=== PATIENT | female | born 1990 | race Caucasian/White ===

== ENCOUNTER 2019-12-07 18:05 | Inpatient (IN) | payer OTHER ==
[2019-12-07] MEDS ORDERED: Sodium Chloride 0.9% 10 ML Syringe FLUSH PRN (18:59)
[2019-12-07] MEDS ORDERED: Ondansetron 4 MG/2 ML SDV IVPUSH PRN ×2 (18:59→21:27)
[2019-12-07] MEDS ORDERED: Citric Acid/Sodium Citrate Solution 30 ML Cup PO ONE (18:59)
[2019-12-07] MEDS ORDERED: Metoclopramide 10 MG/2 ML SDV IVPUSH ONE (18:59)
[2019-12-07] MEDS ORDERED: ceFAZolin 2 GM in Premix Bag 1 BAG IV ONE (19:00)
[2019-12-07] MEDS ORDERED: ceFAZolin 1 GM in Premix Bag 1 BAG IV ONE (19:00)
[2019-12-07] MEDS ORDERED: Lactated Ringers 1,000 ML IV SCH (19:00)
--- NOTE | 2019-12-07 19:27 | PCM.LDHP ---
L&D History of Present Illness - General Date of Service: 12/07/19 Admit Problem/Dx: Patient Status Order with Admit Dx/Problem 12/07/19 18:59 Patient Status [ADT] Routine Admission Diagnosis/Problem Admission Diagnosis/Problem Abnormal test Source of Information: Patient History Limitations: Reports: No Limitations - History of Present Illness Introduction:: Patient is a 29 y/o at 37 6/7 wks who presents for concerns of decreased FM. Patient seen for clinic appointment today and noted concerns for decreased movement. NST done and non reactive. Follow up BPP done and was only 6/10 and also with findings of polyhydramnios. Total score of 6/10. Given this finding recommendation was to proceed to L&D for delivery. This was at 1300. Patient very nervous with this recommendation and declined. See clinic note for full details. However, went home and continued to have concerns for decreased FM. Called into clinic and was asked to present to L&D. She did present at 1820. 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 (Approximate): - Infectious Disease History Infectious Disease History: Reports: Herpes - Past Surgical History Female Surgical History: Reports: Section (x3) Social & Family History - Tobacco Use Smoking Status *Q: Former Smoker - Alcohol Use Alcohol Use History: No - Recreational Drug Use Recreational Drug Use: No H&P Review of Systems - Review of Systems: Review Of Systems: See Below General: Reports: No Symptoms Pulmonary: Reports: No Symptoms Cardiovascular: Reports: No Symptoms Gastrointestinal: Reports: No Symptoms Genitourinary: Reports: No Symptoms Musculoskeletal: Reports: No Symptoms Psychiatric: Reports: No Symptoms Neurological: Reports: No Symptoms L&D Exam - Exam Exam: See Below - Vital Signs Weight: 119.748 kg - OB Specific Contraction Intensity: Irritability Movement: Active Heart Tones: Present Heart Tones per Min: 130 Heart Rate (FHR) Variability: Moderate (6-25 bmp) - Exam General: Alert, Oriented, Cooperative Lungs: Clear to Auscultation, Normal Respiratory Effort Cardiovascular: Regular Rate, Regular Rhythm GI/Abdominal Exam: Soft, Non-Tender Genitourinary: Normal external exam Extremities: Normal Inspection Skin: Warm, Dry, Intact - Problem List (1) BMI 45.0-49.9, adult SNOMED Code(s): 535166256, 030195876 ICD Code: Z68.42 - BODY MASS INDEX (BMI) 45.0-49.9, ADULT Status: Acute Current Visit: Yes (2) History of delivery SNOMED Code(s): 074598553 ICD Code: Z98.891 - HISTORY OF UTERINE SCAR FROM PREVIOUS SURGERY Status: Acute Current Visit: Yes (3) 37 weeks gestation of SNOMED Code(s): 13439379 ICD Code: Z3A.37 - 37 WEEKS GESTATION OF Status: Acute Current Visit: Yes (4) Abnormal test SNOMED Code(s): 664036043, 532701855 ICD Code: O28.9 - UNSP ABNORMAL FINDINGS ON SCREENING OF MOTHER Status: Acute Current Visit: Yes Problem List Initiated/Reviewed/Updated: Yes Orders Last 24hrs: Active Orders 24 hr Category Date Time Status Patient Status [ADT] Routine ADT 12/07/19 18:59 Active Communication Order [RC] ROUTINE Care 12/07/19 18:59 Active Heart Tones [RC] PER UNIT ROUTINE Care 12/07/19 18:59 Active Non Stress Test [RC] PER UNIT ROUTINE Care 12/07/19 18:59 Active Peripheral IV Care [RC] . DIRECTED Care 12/07/19 19:02 Active Procedure Site Prep Instruct [RC] ASDIRECTED Care 12/07/19 18:59 Active Verify Patient Consent Obtain [RC] PER UNIT ROUTINE Care 12/07/19 18:59 Active Vital Signs [RC] PFP Care 12/07/19 18:59 Active CBC W/O DIFF,HEMOGRAM [HEME] Stat Lab 12/07/19 18:59 Ordered RAPID PLASMA REAGIN,RPR [CHEM] Routine Lab 12/07/19 18:59 Ordered TYPE AND SCREEN [BBK] Routine Lab 12/07/19 18:59 Ordered Citric Acid/Sodium Citrate [Bicitra Solution] Med 12/07/19 18:59 Pending 30 ml PO ONETIME ONE Lactated Ringers [Ringers, Lactated] 1,000 ml Med 12/07/19 19:00 Pending IV ASDIRECTED Metoclopramide [Reglan] Med 12/07/19 18:59 Pending 10 mg IVPUSH ONETIME ONE Ondansetron [Zofran] Med 12/07/19 18:59 Pending 4 mg IVPUSH Q4H PRN Sodium Chloride 0.9% [Saline Flush] Med 12/07/19 18:59 Pending 10 ml FLUSH ASDIRECTED PRN ceFAZolin [Ancef] 1 gm Med 12/07/19 18:59 Pending Premix Bag 1 bag IV ONETIME ceFAZolin [Ancef] 2 gm Med 12/07/19 18:59 Pending Premix Bag 1 bag IV ONETIME Peripheral IV Insertion Adult [OM.PC] Routine Oth 12/07/19 18:59 Ordered Schedule Procedure [COMM] Per Unit Routine Oth 12/07/19 18:59 Ordered Resuscitation Status Routine Resus Stat 12/07/19 18:59 Ordered Medication Orders Citric Acid/Sodium Citrate (Bicitra Solution) 30 ml PO ONETIME ONE Stop: 12/07/19 19:00 Cefazolin Sodium/Dextrose 2 gm (/ Premix) 50 mls @ 100 mls/hr IV ONETIME ONE Stop: 12/07/19 19:28 Cefazolin Sodium/Dextrose 1 gm (/ Premix) 50 mls @ 100 mls/hr IV ONETIME ONE Stop: 12/07/19 19:28 Lactated Ringer's (Ringers, Lactated) 1,000 mls @ 125 mls/hr IV ASDIRECTED [facility] Metoclopramide HCl (Reglan) 10 mg IVPUSH ONETIME ONE Stop: 12/07/19 19:00 Ondansetron HCl (Zofran) 4 mg IVPUSH Q4H PRN PRN Reason: Nausea/Vomiting Sodium Chloride (Saline Flush) 10 ml FLUSH ASDIRECTED PRN PRN Reason: Keep Vein Open Assessment/Plan Comment:: Reviewed with patient that while FHR tracing is more appropriate currently it does not overrule testing from earlier today especially as she still has concerns for decreased FM. Recommendations are still to proceed with c- section. After patient and her were allowed to review they do agree with this plan. Labs ordered. Ofelia ASHLEY. Peds/Anesthesia made aware. Consent reviewed and signed earlier today in clinic.
--- NOTE | 2019-12-07 20:19 | PCM.PREANE ---
Preanesthetic Assessment - Anesthesia/Transfusion/Family Hx Anesthesia History: Prior Anesthesia Without Reaction - Review of Systems General: No Symptoms Pulmonary: No Symptoms Cardiovascular: No Symptoms Gastrointestinal: No Symptoms Neurological: No Symptoms Other: Reports: None - Physical Assessment NPO Status Date: 12/07/19 NPO Status Time: 16:00 Vital Signs: Last Vital Signs Temp 98.1 F 12/07/19 18:24 Pulse 87 12/07/19 18:24 Resp 16 12/07/19 18:24 BP 112/58 L 12/07/19 18:24 Pulse Ox 95 12/07/19 18:24 Height: 1.57 m Weight: 119.748 kg ASA Class: 2E Mental Status: Alert & Oriented x3 Airway Class: Mallampati = 2 Dentition: Reports: Normal Dentition Thyro-Mental Finger Breadths: 3 Mouth Opening Finger Breadths: 3 ROM/Head Extension: Full Lungs: Clear to Auscultation, Normal Respiratory Effort Cardiovascular: Regular Rate, Regular Rhythm - Lab Values: Laboratory Last Values WBC 10.73 K/mm3 (3.98-10.04) H 12/07/19 19:37 RBC 3.95 M/mm3 (3.98-5.22) L 12/07/19 19:37 Hgb 11.2 gm/dl (11.2-15.7) 12/07/19 19:37 Hct 35.2 % (34.1-44.9) 12/07/19 19:37 MCV 89.1 fl (79.4-94.8) 12/07/19 19:37 MCH 28.4 pg (25.6-32.2) 12/07/19 19:37 MCHC 31.8 g/dl (32.2-35.5) L 12/07/19 19:37 RDW Std Deviation 44.5 fL (36.4-46.3) 12/07/19 19:37 Plt Count 257 K/mm3 (182-369) 12/07/19 19:37 MPV 10.6 fl (9.4-12.3) 12/07/19 19:37 - Allergies Allergies/Adverse Reactions: Allergies Allergy/AdvReac Type Severity Reaction Status Date / Time No Known Allergies Allergy Verified 12/07/19 19:32 - Acknowledgements Anesthesia Type Planned: General Anesthesia, Spinal Pt an Appropriate Candidate for the Planned Anesthesia: Yes Alternatives and Risks of Anesthesia Discussed w Pt/Guardian: Yes Pt/Guardian Understands and Agrees with Anesthesia Plan: Yes 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: - Infectious Disease History Infectious Disease History: Reports: Herpes - Past Surgical History Female Surgical History: Reports: Section (x3) - SUBSTANCE USE Smoking Status *Q: Former Smoker Recreational Drug Use History: No - CURRENT (IN HOUSE) MEDS Current Meds: Current Medications Lactated Ringer's (Ringers, Lactated) 1,000 mls @ 125 mls/hr IV ASDIRECTED [facility] Ondansetron HCl (Zofran) 4 mg IVPUSH Q4H PRN PRN Reason: Nausea/Vomiting Sodium Chloride (Saline Flush) 10 ml FLUSH ASDIRECTED PRN PRN Reason: Keep Vein Open Discontinued Medications Citric Acid/Sodium Citrate (Bicitra Solution) 30 ml PO ONETIME ONE Stop: 12/07/19 19:00 Cefazolin Sodium/Dextrose 2 gm (/ Premix) 50 mls @ 100 mls/hr IV ONETIME ONE Stop: 12/07/19 19:29 Cefazolin Sodium/Dextrose 1 gm (/ Premix) 50 mls @ 100 mls/hr IV ONETIME ONE Stop: 12/07/19 19:29 Metoclopramide HCl (Reglan) 10 mg IVPUSH ONETIME ONE Stop: 12/07/19 19:00
[2019-12-07] MEDS ORDERED: Oxytocin 10 Units/1 ML SDV ONE (20:25)
[2019-12-07] MEDS ORDERED: fentaNYL 100 MCG/2 ML SDV ONE (20:25)
[2019-12-07] MEDS ORDERED: Morphine PF 10 MG/10 ML SDV ONE (20:26)
[2019-12-07] MEDS ORDERED: ceFAZolin 1 GM Vial ONE (20:31)
[2019-12-07] MEDS ORDERED: Lactated Ringers 1,000 ML ONE ×2 (20:47→21:24)
[2019-12-07] MEDS ORDERED: ePHEDrine Sulfate/0.9% NaCl/Pf 25 MG/5 ML SYRINGE IV ONE (21:05)
[2019-12-07] MEDS ORDERED: fentaNYL 100 MCG/2 ML SDV IVPUSH PRN (21:27)
[2019-12-07] MEDS ORDERED: diphenhydrAMINE 50 MG/ML SDV IVPUSH PRN (21:27)
[2019-12-07] MEDS ORDERED: Ketorolac 30 MG/ML SDV ONE (21:33)
--- NOTE | 2019-12-07 21:46 | PCM.OPNOTE ---
- General Post-Op/Procedure Note Date of Surgery/Procedure: 12/07/19 Operative Procedure(s): Repeat low transverse Findings: Moderate amount of scar tissue between the rectus and fascia. Small amount of scarring between bladder and lower uterine segment. Baby girl in VTX presentation with weight of 6 lbs 15 oz and APGARS of 6 & 8 Pre Op Diagnosis: 37 6/7 wks gestation. Hx of x 3. 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 After induction of anesthesia, the patient was placed in a supine position and then draped and prepped in the usual sterile manner. A Pfannenstiel incision was made and carried down through the subcutaneous tissue to the fascia. Fascial incision was made and extended transversely. The fascia was from the underlying rectus tissue superiorly and inferiorly. The peritoneum was identified and entered. Peritoneal incision was extended longitudinally. The utero-vesical peritoneal reflection was incised transversely and the bladder flap was bluntly freed from the lower uterine segment. A low transverse uterine incision was made sharply with a scalpel and extended bluntly in a cephalocaudad direction. A baby girl was delivered from a vertex presentation with APGARS as above. After the umbilical cord was clamped and cut cord blood was obtained for evaluation. The placenta was removed intact and appeared normal. The uterus was exteriorized and cleared of clots. The uterine outline, tubes and ovaries appeared normal. The uterine incision was closed with running locked sutures of 0 Vicryl. Hemostasis was obtained with several interrupted 0 vicryl sutures. The uterus was then placed back into the abdomen. The infracolic gutters were cleared of blood clots. The fascia was then reapproximated with running sutures of 1 PDS. The subcutaneous tissue was irrigated with sterile warm normal saline, hemostasis obtained with cautery. This layer was also closed with a running 0 Vicryl. The skin was reapproximated with running Subcuticular 4-0 Monocryl sutures. Instrument, sponge, and needle counts were correct prior the abdominal closure and at the conclusion of the case.
--- NOTE | 2019-12-07 21:51 | PCM.POSTAN ---
POST ANESTHESIA ASSESSMENT - MENTAL STATUS Mental Status: Alert, Oriented - VITAL SIGNS Vital Signs: Last Vital Signs Temp 97.0 F 12/07/19 21:37 Pulse 88 12/07/19 21:37 Resp 20 12/07/19 21:37 BP 105/57 L 12/07/19 21:37 Pulse Ox 97 12/07/19 21:37 - RESPIRATORY Respiratory Status: Respiratory Rate WNL, Airway Patent, O2 Saturation Stable - CARDIOVASCULAR CV Status: Pulse Rate WNL, Blood Pressure Stable - GASTROINTESTINAL GI Status: No Symptoms - PAIN Pain Score: 0 (post SAB) - POST OP HYDRATION Hydration Status: Adequate & Stable
[2019-12-07] MEDS ORDERED: Acetaminophen/oxyCODONE 325-5 MG Tab PO PRN (23:01)
[2019-12-07] MEDS ORDERED: Ibuprofen 600 MG Tab PO PRN (23:01)
[2019-12-07] MEDS ORDERED: Dextrose 5%-Lactated Ringers 1,000 ML IV SCH (23:01)
[2019-12-07] MEDS ORDERED: Ondansetron 4 MG/2 ML SDV IV PRN (23:01)
[2019-12-07] MEDS ORDERED: Docusate Sodium 100 MG Cap PO PRN (23:01)
[2019-12-07] MEDS ORDERED: Dextrose 5%-Lactated Ringers 1,000 ML ONE (23:04)
[2019-12-08] MEDS: Ketorolac 30 MG/ML SDV IVPUSH SCH ×3 (04:36→17:30)
--- NOTE | 2019-12-08 08:51 | PCM48HPAN ---
Post Anesthesia Note - EVALUATION WITHIN 48HRS OF ANESTHETIC Vital Signs in Normal Range: Yes Patient Participated in Evaluation: Yes Respiratory Function Stable: Yes Airway Patent: Yes Cardiovascular Function Stable: Yes Hydration Status Stable: Yes Pain Control Satisfactory: Yes Nausea and Vomiting Control Satisfactory: Yes Mental Status Recovered: Yes (complains of itchiness) Vital Signs: Last Vital Signs Temp 97.6 F 12/07/19 22:20 Pulse 80 12/07/19 22:20 Resp 18 12/07/19 22:20 BP 119/72 12/07/19 22:20 Pulse Ox 98 12/07/19 22:20
--- NOTE | 2019-12-08 08:54 | PCM.PNPP ---
- General Info Date of Service: 12/08/19 Functional Status: Reports: Pain Controlled, Tolerating Diet, Ambulating, Urinating - Review of Systems General: Reports: No Symptoms Pulmonary: Reports: No Symptoms Cardiovascular: Reports: No Symptoms Gastrointestinal: Reports: Abdominal Pain (Managed with medications ) Genitourinary: Reports: No Symptoms Musculoskeletal: Reports: No Symptoms Neurological: Reports: No Symptoms - General Info Date of Service: 12/08/19 - Patient Data Vital Signs - Most Recent: Last Vital Signs Temp 36.4 C 12/07/19 22:20 Pulse 80 12/07/19 22:20 Resp 18 12/07/19 22:20 BP 119/72 12/07/19 22:20 Pulse Ox 98 12/07/19 22:20 Weight - Most Recent: 119.748 kg I&O - Last 24 Hours: Intake & Output 12/07/19 12/08/19 12/08/19 22:59 06:59 14:59 Intake Total 760 2400 Output Total 180 150 Balance 580 2250 Lab Results - Last 24 Hours: Laboratory Results - last 24 hr 12/07/19 12/07/19 12/07/19 Range/Units 19:37 19:37 19:37 WBC 10.73 H (3.98-10.04) K/mm3 RBC 3.95 L (3.98-5.22) M/mm3 Hgb 11.2 (11.2-15.7) gm/dl Hct 35.2 (34.1-44.9) % MCV 89.1 (79.4-94.8) fl MCH 28.4 (25.6-32.2) pg MCHC 31.8 L (32.2-35.5) g/dl RDW Std Deviation 44.5 (36.4-46.3) fL Plt Count 257 (182-369) K/mm3 MPV 10.6 (9.4-12.3) fl RPR Non-reactive (NONREACTIVE) Blood Type A POSITIVE Gel Antibody Screen Negative 12/08/19 Range/Units 05:45 WBC 10.39 H (3.98-10.04) K/mm3 RBC 3.36 L (3.98-5.22) M/mm3 Hgb 9.4 L D (11.2-15.7) gm/dl Hct 30.3 L (34.1-44.9) % MCV 90.2 (79.4-94.8) fl MCH 28.0 (25.6-32.2) pg MCHC 31.0 L (32.2-35.5) g/dl RDW Std Deviation 45.0 (36.4-46.3) fL Plt Count 189 (182-369) K/mm3 MPV 10.4 (9.4-12.3) fl RPR (NONREACTIVE) Blood Type Gel Antibody Screen Med Orders - Current: Current Medications Diphenhydramine HCl (Benadryl) 25 mg IVPUSH Q6H PRN PRN Reason: Pruritis Docusate Sodium (Colace) 100 mg PO Q12H PRN PRN Reason: Constipation Fentanyl (Sublimaze) 50 mcg IVPUSH Q5M PRN PRN Reason: Pain Ibuprofen (Motrin) 600 mg PO Q6H PRN PRN Reason: mild pain or fever Ketorolac Tromethamine (Toradol) 30 mg IVPUSH Q6H [facility] Stop: 12/08/19 15:31 Last Admin: 12/08/19 04:36 Dose: 30 mg Ondansetron HCl (Zofran) 4 mg IVPUSH ONETIME PRN PRN Reason: Nausea/Vomiting Ondansetron HCl (Zofran) 4 mg IV Q8H PRN PRN Reason: Nausea/Vomiting Oxycodone/Acetaminophen (Percocet 325-5 Mg) 1 tab PO Q4H PRN PRN Reason: Pain (moderate 4-6) Oxycodone/Acetaminophen (Percocet 325-5 Mg) 2 tab PO Q4H PRN PRN Reason: Pain (severe 7-10) Discontinued Medications Cefazolin Sodium (Ancef) Confirm Administered Dose 3 gm .ROUTE .STK-MED ONE Stop: 12/07/19 20:32 Citric Acid/Sodium Citrate (Bicitra Solution) 30 ml PO ONETIME ONE Stop: 12/07/19 19:00 Last Admin: 12/07/19 20:15 Dose: 30 ml Ephedrine Sulfate (Ephedrine 25 Mg/5 Ml Syringe) Confirm Administered Dose 25 mg IV .STK-MED ONE Stop: 12/07/19 21:06 Fentanyl (Sublimaze) Confirm Administered Dose 100 mcg .ROUTE .STK-MED ONE Stop: 12/07/19 20:26 Cefazolin Sodium/Dextrose 2 gm (/ Premix) 50 mls @ 100 mls/hr IV ONETIME ONE Stop: 12/07/19 19:29 Cefazolin Sodium/Dextrose 1 gm (/ Premix) 50 mls @ 100 mls/hr IV ONETIME ONE Stop: 12/07/19 19:29 Lactated Ringer's (Ringers, Lactated) 1,000 mls @ 125 mls/hr IV ASDIRECTED [facility] Lactated Ringer's (Ringers, Lactated) Confirm Administered Dose 1,000 mls @ as directed .ROUTE .STK-MED ONE Stop: 12/07/19 20:48 Lactated Ringer's (Ringers, Lactated) Confirm Administered Dose 1,000 mls @ as directed .ROUTE .STK-MED ONE Stop: 12/07/19 21:25 Dextrose/Lactated Ringer's (Dextrose 5%-Lactated Ringers) 1,000 mls @ 125 mls/ hr IV ASDIRECTED [facility] Stop: 12/08/19 07:00 Last Admin: 12/07/19 23:00 Dose: 125 mls/hr Dextrose/Lactated Ringer's (Dextrose 5%-Lactated Ringers) Confirm Administered Dose 1,000 mls @ as directed .ROUTE .STK-MED ONE Stop: 12/07/19 23:05 Ketorolac Tromethamine (Toradol) Confirm Administered Dose 30 mg .ROUTE .STK- MED ONE Stop: 12/07/19 21:34 Metoclopramide HCl (Reglan) 10 mg IVPUSH ONETIME ONE Stop: 12/07/19 19:00 Last Admin: 12/07/19 20:18 Dose: 10 mg Miscellaneous Medication (Phenylephrine 1 Mg/10 Ml-Ns) Confirm Administered Dose 1 mg IV .STK-MED ONE Stop: 12/07/19 20:44 Morphine Sulfate (Duramorph Pf) Confirm Administered Dose 10 mg .ROUTE .STK-MED ONE Stop: 12/07/19 20:27 Ondansetron HCl (Zofran) 4 mg IVPUSH Q4H PRN PRN Reason: Nausea/Vomiting Oxytocin (Pitocin) Confirm Administered Dose 20 unit .ROUTE .STK-MED ONE Stop: 12/07/19 20:26 Sodium Chloride (Saline Flush) 10 ml FLUSH ASDIRECTED PRN PRN Reason: Keep Vein Open - Infant Interaction Disposition, : to Nursery (on oxygen) Infant Interaction: To Nursery to Visit Infant Support Person: - Recovery Exam Fundal Tone: Firm Lochia Amount: Scant Perineum Description: Intact, Minimal Bruising/Swelling Episiotomy/Laceration: None Bladder Status: Indwelling Catheter in Place Urinary Elimination: Indwelling Catheter - Exam General: Alert, Oriented, Cooperative Lungs: Clear to Auscultation, Normal Respiratory Effort Cardiovascular: Regular Rate, Regular Rhythm GI/Abdominal Exam: Soft, Tender (appropriate post op ) Extremities: Normal Inspection Skin: Warm, Dry, Intact Wound/Incisions: Healing Well, Dressing Dry and Intact - Problem List & Annotations (1) BMI 45.0-49.9, adult SNOMED Code(s): 549055047, 765650198 Code(s): Z68.42 - BODY MASS INDEX (BMI) 45.0-49.9, ADULT Status: Acute Current Visit: Yes (2) History of delivery SNOMED Code(s): 996803199 Code(s): Z98.891 - HISTORY OF UTERINE SCAR FROM PREVIOUS SURGERY Status: Acute Current Visit: Yes (3) 37 weeks gestation of SNOMED Code(s): 42997399 Code(s): Z3A.37 - 37 WEEKS GESTATION OF Status: Acute Current Visit: Yes (4) Abnormal test SNOMED Code(s): 920556535, 714808239 Code(s): O28.9 - UNSP ABNORMAL FINDINGS ON SCREENING OF MOTHER Status: Acute Current Visit: Yes (5) S/P repeat low transverse SNOMED Code(s): 906511311, 49765436, 612629532, 597242880, 387090953 Code(s): Z98.891 - HISTORY OF UTERINE SCAR FROM PREVIOUS SURGERY Status: Acute Current Visit: Yes - Problem List Review Problem List Initiated/Reviewed/Updated: Yes - My Orders Last 24 Hours: My Active Orders 12/07/19 18:59 Communication Order [RC] ROUTINE Heart Tones [RC] PER UNIT ROUTINE Non Stress Test [RC] PER UNIT ROUTINE Procedure Site Prep Instruct [RC] ASDIRECTED Verify Patient Consent Obtain [RC] PER UNIT ROUTINE Vital Signs [RC] PFP Resuscitation Status Routine 12/07/19 19:02 Peripheral IV Care [RC] . DIRECTED 12/07/19 23:01 Activity as Tolerated [RC] .Routine Antiembolic Devices [RC] PER UNIT ROUTINE Communication Order [RC] PER UNIT ROUTINE Intake and Output [RC] Q4H May Shower [RC] PER UNIT ROUTINE Notify Provider Intake and Out [RC] ASDIRECTED RT Incentive Spirometry [RC] Q2HWA Vital Signs [RC] Q4HR Acetaminophen/oxyCODONE [Percocet 325-5 MG] 1 tab PO Q4H PRN Acetaminophen/oxyCODONE [Percocet 325-5 MG] 2 tab PO Q4H PRN Docusate Sodium [Colace] 100 mg PO Q12H PRN Ibuprofen [Motrin] 600 mg PO Q6H PRN Ondansetron [Zofran] 4 mg IV Q8H PRN Assess Lochia [WOMSER] Per Unit Routine Assess Uterine Involution [WOMSER] Per Unit Routine Breast Pump [WOMSER] Per Unit Routine Heat Therapy [OM.PC] Per Unit Routine Peripheral IV Discontinue [OM.PC] Routine Sequential Compression Device [OM.PC] Per Unit Routine 12/07/19 Dinner Regular Diet [DIET] 12/08/19 03:30 Ketorolac [Toradol] 30 mg IVPUSH Q6H 12/08/19 21:47 Urinary Catheter Removal [RC] Per Unit Routine - Assessment Assessment:: POD#1 from [facility]LTCS - Plan Plan:: * Routine cares * Bottle feeding * Baby in nursery * CBC with appropriate drop this AM * Discharge home pending clinical course
[2019-12-08] MEDS ORDERED: Lactated Ringers 500 ML IV ONE (08:55)
[2019-12-08] MEDS: Acetaminophen/oxyCODONE 325-5 MG Tab PO PRN ×2 (13:23→21:27)
[2019-12-09] MEDS: Acetaminophen/oxyCODONE 325-5 MG Tab PO PRN ×2 (05:08→10:30)
--- NOTE | 2019-12-09 09:48 | PCM.DCSUM1 ---
Discharge Summary - Hospital Course Free Text/Narrative:: [facility] Post-Op/Procedure Note Patient Name: ALPHONSE SOLIZ Date of : 89 Patient Status: Inpatient Attending Provider: Hafsa Gil Date: 12/07/19 21:45 Initialization Date: 12/07/19 21:45 - General Post-Op/Procedure Note Date of Surgery/Procedure: 12/07/19 Operative Procedure(s): Repeat low transverse Findings: Moderate amount of scar tissue between the rectus and fascia. Small amount of scarring between bladder and lower uterine segment. Baby girl in VTX presentation with weight of 6 lbs 15 oz and APGARS of 6 & 8 Pre Op Diagnosis: 37 6/7 wks gestation. Hx of x 3. Decreased FM with abnormal testing 03/06 (0 points NST, 0 points movement on BPP) Post-Op Diagnosis: Same Anesthesia Technique: Spinal Primary Surgeon: Hafsa Gil Secondary Surgeon: Lucas Freitas Anesthesia Provider: Zain Monreal Reason Movement Therapist Was Necessary: BMI of patient, speed/safety of procedure Pathology: Cord blood collected, placenta discarded Fluid Replacement, Intraop: 2,400 Output, Urine Amount: 150 EBL in mLs: 700 Complications: None Condition: Good Free Text/Narrative:: The risks, benefits, indications, potential complications, and alternatives were explained to the patient and informed consent obtained. After induction of anesthesia, the patient was placed in a supine position and then draped and prepped in the usual sterile manner. A Pfannenstiel incision was made and carried down through the subcutaneous tissue to the fascia. Fascial incision was made and extended transversely. The fascia was from the underlying rectus tissue superiorly and inferiorly. The peritoneum was identified and entered. Peritoneal incision was extended longitudinally. The utero-vesical peritoneal reflection was incised transversely and the bladder flap was bluntly freed from the lower uterine segment. A low transverse uterine incision was made sharply with a scalpel and extended bluntly in a cephalocaudad direction. A baby girl was delivered from a vertex presentation with APGARS as above. After the umbilical cord was clamped and cut cord blood was obtained for evaluation. The placenta was removed intact and appeared normal. The uterus was exteriorized and cleared of clots. The uterine outline, tubes and ovaries appeared normal. The uterine incision was closed with running locked sutures of 0 Vicryl. Hemostasis was obtained with several interrupted 0 vicryl sutures. The uterus was then placed back into the abdomen. The infracolic gutters were cleared of blood clots. The fascia was then reapproximated with running sutures of 1 PDS. The subcutaneous tissue was irrigated with sterile warm normal saline, hemostasis obtained with cautery. This layer was also closed with a running 0 Vicryl. The skin was reapproximated with running Subcuticular 4-0 Monocryl sutures. Instrument, sponge, and needle counts were correct prior the abdominal closure and at the conclusion of the case. HPI Initial Comments: [facility] Post-Op/Procedure Note Patient Name: ALPHONSE SOLIZ Date of : 89 Patient Status: Inpatient Attending Provider: Hafsa Gil Date: 12/07/19 21:45 Initialization Date: 12/07/19 21:45 - General Post-Op/Procedure Note Date of Surgery/Procedure: 12/07/19 Operative Procedure(s): Repeat low transverse Findings: Moderate amount of scar tissue between the rectus and fascia. Small amount of scarring between bladder and lower uterine segment. Baby girl in VTX presentation with weight of 6 lbs 15 oz and APGARS of 6 & 8 Pre Op Diagnosis: 37 6/7 wks gestation. Hx of x 3. Decreased FM with abnormal testing 03/06 (0 points NST, 0 points movement on BPP) Post-Op Diagnosis: Same Anesthesia Technique: Spinal Primary Surgeon: Hafsa Gil Secondary Surgeon: Lucas Freitas Anesthesia Provider: Zain Monreal Reason Movement Therapist Was Necessary: BMI of patient, speed/safety of procedure Pathology: Cord blood collected, placenta discarded Fluid Replacement, Intraop: 2,400 Output, Urine Amount: 150 EBL in mLs: 700 Complications: None Condition: Good Free Text/Narrative:: The risks, benefits, indications, potential complications, and alternatives were explained to the patient and informed consent obtained. After induction of anesthesia, the patient was placed in a supine position and then draped and prepped in the usual sterile manner. A Pfannenstiel incision was made and carried down through the subcutaneous tissue to the fascia. Fascial incision was made and extended transversely. The fascia was from the underlying rectus tissue superiorly and inferiorly. The peritoneum was identified and entered. Peritoneal incision was extended longitudinally. The utero-vesical peritoneal reflection was incised transversely and the bladder flap was bluntly freed from the lower uterine segment. A low transverse uterine incision was made sharply with a scalpel and extended bluntly in a cephalocaudad direction. A baby girl was delivered from a vertex presentation with APGARS as above. After the umbilical cord was clamped and cut cord blood was obtained for evaluation. The placenta was removed intact and appeared normal. The uterus was exteriorized and cleared of clots. The uterine outline, tubes and ovaries appeared normal. The uterine incision was closed with running locked sutures of 0 Vicryl. Hemostasis was obtained with several interrupted 0 vicryl sutures. The uterus was then placed back into the abdomen. The infracolic gutters were cleared of blood clots. The fascia was then reapproximated with running sutures of 1 PDS. The subcutaneous tissue was irrigated with sterile warm normal saline, hemostasis obtained with cautery. This layer was also closed with a running 0 Vicryl. The skin was reapproximated with running Subcuticular 4-0 Monocryl sutures. Instrument, sponge, and needle counts were correct prior the abdominal closure and at the conclusion of the case. Brief History: [facility] . Post-Op/Procedure Note. [id number]. Date of : Patient Status: Inpatient. Attending Provider: Hafsa Gil CAccount Number: [id number]. Date: 12/07/19 21:45Initialization Date: 12/07/19 21:45. - General Post-Op/Procedure Note. Date of Surgery/Procedure: 12/07/19. Operative Procedure(s): Repeat low transverse . Findings: Moderate amount of scar tissue between the rectus and fascia. Small amount of scarring between bladder and lower uterine segment. Baby girl in VTX presentation with weight of 6 lbs 15 oz and APGARS of 6 & 8. Pre Op Diagnosis: 37 6/7 wks gestation. Hx of x 3. Decreased FM with abnormal testing (0 points NST, 0 points movement on BPP). Post-Op Diagnosis: Same. Anesthesia Technique: Spinal. Primary Surgeon: Hafsa Gil. Secondary Surgeon: Lucas Freitas. Anesthesia Provider: Zain Monreal. Reason Movement Therapist Was Necessary: BMI of patient, speed/safety of procedure. Pathology : Cord blood collected, placenta discarded. Fluid Replacement, Intraop: 2, 400. Output, Urine Amount: 150. EBL in mLs: 700. Complications: None. Condition: Good. Free Text/Narrative:: The risks, benefits, indications, potential complications, and alternatives were explained to the patient and informed consent obtained. After induction of anesthesia, the patient was placed in a supine position and then draped and prepped in the usual sterile manner. A Pfannenstiel incision was made and carried down through the subcutaneous tissue to the fascia. Fascial incision was made and extended transversely. The fascia was from the underlying rectus tissue superiorly and inferiorly. The peritoneum was identified and entered. Peritoneal incision was extended longitudinally. The utero-vesical peritoneal reflection was incised transversely and the bladder flap was bluntly freed from the lower uterine segment. A low transverse uterine incision was made sharply with a scalpel and extended bluntly in a cephalocaudad direction. A baby girl was delivered from a vertex presentation with APGARS as above. After the umbilical cord was clamped and cut cord blood was obtained for evaluation. The placenta was removed intact and appeared normal. The uterus was exteriorized and cleared of clots. The uterine outline, tubes and ovaries appeared normal. The uterine incision was closed with running locked sutures of 0 Vicryl. Hemostasis was obtained with several interrupted 0 vicryl sutures. The uterus was then placed back into the abdomen. The infracolic gutters were cleared of blood clots. The fascia was then reapproximated with running sutures of 1 PDS. The subcutaneous tissue was irrigated with sterile warm normal saline, hemostasis obtained with cautery. This layer was also closed with a running 0 Vicryl. The skin was reapproximated with running Subcuticular 4-0 Monocryl sutures. Instrument, sponge, and needle counts were correct prior the abdominal closure and at the conclusion of the case. Diagnosis: Stroke: No - Discharge Data Discharge Date: 12/09/19 Discharge Disposition: Home, Self-Care 01 Condition: Good - Referral to Home Health Primary Care Physician: Hafsa Gil MD - Discharge Diagnosis/Problem(s) (1) 37 weeks gestation of SNOMED Code(s): 60283969 ICD Code: Z3A.37 - 37 WEEKS GESTATION OF Status: Acute Current Visit: Yes (2) Abnormal test SNOMED Code(s): 656954115, 327752273 ICD Code: O28.9 - UNSP ABNORMAL FINDINGS ON SCREENING OF MOTHER Status: Acute Current Visit: Yes (3) BMI 45.0-49.9, adult SNOMED Code(s): 244797706, 809407040 ICD Code: Z68.42 - BODY MASS INDEX (BMI) 45.0-49.9, ADULT Status: Acute Current Visit: Yes (4) History of delivery SNOMED Code(s): 883690082 ICD Code: Z98.891 - HISTORY OF UTERINE SCAR FROM PREVIOUS SURGERY Status: Acute Current Visit: Yes (5) S/P repeat low transverse SNOMED Code(s): 846426065, 44659712, 502163331, 533969382, 205454123 ICD Code: Z98.891 - HISTORY OF UTERINE SCAR FROM PREVIOUS SURGERY Status: Acute Current Visit: Yes - Patient Summary/Data Operative Procedure(s) Performed: Repeat low transverse Complications: None Consults: None Hospital Course: Uneventful - Patient Instructions Diet: Usual Diet as Tolerated Showering/Bathing: May Shower, No Tub Bathing/Swimming (6 weeks) Wound/Incision Care: Keep Operative Site/Wound Site Clean and Dry Notify Provider of: Fever, Increased Pain, Swelling and Redness, Drainage, Nausea and/or Vomiting - Discharge Plan *PRESCRIPTION DRUG MONITORING PROGRAM REVIEWED*: Yes *COPY OF PRESCRIPTION DRUG MONITORING REPORT IN PATIENT SHAHZAD: Yes Prescriptions/Med Rec: oxyCODONE HCl/Acetaminophen [Percocet 5-325 mg Tablet] 1 each PO Q8H #15 tablet Home Medications: Home Meds Acyclovir 400 mg PO TID 12/08/19 [History] Ferrous Sulfate [Iron] 325 mg PO DAILY 12/08/19 [History] Vit No.78/Iron/Fa [Prenatabs FA] 1 each PO DAILY 12/08/19 [History] Acetaminophen/oxyCODONE [Percocet 325-5 MG] 1 tab PO Q8H PRN tablet 12/09/19 [ Rx] Docusate Sodium [Colace] 100 mg PO Q12H PRN cap 12/09/19 [Rx] Ibuprofen [Motrin] 600 mg PO Q6H PRN tablet 12/09/19 [Rx] oxyCODONE HCl/Acetaminophen [Percocet 5-325 mg Tablet] 1 each PO Q8H #15 tablet 12/09/19 [Rx] Referrals: Hafsa Gil MD [Primary Care Provider] - (Patient will call Wednesday to make an appointment to see Dr. Gil for follow-up.) - Discharge Summary/Plan Comment DC Time >30 min.: No - Patient Data Vitals - Most Recent: Last Vital Signs Temp 98.1 F 12/09/19 08:10 Pulse 98 12/09/19 08:10 Resp 16 12/09/19 08:10 BP 126/71 12/09/19 08:10 Pulse Ox 96 12/09/19 08:10 Weight - Most Recent: 264 lb I&O - Last 24 hours: Intake & Output 12/08/19 12/09/19 12/09/19 22:59 06:59 14:59 Intake Total 1000 Output Total 675 700 Balance 325 -700 Med Orders - Current: Current Medications Diphenhydramine HCl (Benadryl) 25 mg IVPUSH Q6H PRN PRN Reason: Pruritis Docusate Sodium (Colace) 100 mg PO Q12H PRN PRN Reason: Constipation Fentanyl (Sublimaze) 50 mcg IVPUSH Q5M PRN PRN Reason: Pain Ibuprofen (Motrin) 600 mg PO Q6H PRN PRN Reason: mild pain or fever Last Admin: 12/09/19 08:15 Dose: 600 mg Ondansetron HCl (Zofran) 4 mg IVPUSH ONETIME PRN PRN Reason: Nausea/Vomiting Ondansetron HCl (Zofran) 4 mg IV Q8H PRN PRN Reason: Nausea/Vomiting Oxycodone/Acetaminophen (Percocet 325-5 Mg) 1 tab PO Q4H PRN PRN Reason: Pain (moderate 4-6) Last Admin: 12/09/19 05:08 Dose: 1 tab Oxycodone/Acetaminophen (Percocet 325-5 Mg) 2 tab PO Q4H PRN PRN Reason: Pain (severe 7-10) Last Admin: 12/08/19 22:05 Dose: 2 tab Discontinued Medications Cefazolin Sodium (Ancef) Confirm Administered Dose 3 gm .ROUTE .STK-MED ONE Stop: 12/07/19 20:32 Citric Acid/Sodium Citrate (Bicitra Solution) 30 ml PO ONETIME ONE Stop: 12/07/19 19:00 Last Admin: 12/07/19 20:15 Dose: 30 ml Ephedrine Sulfate (Ephedrine 25 Mg/5 Ml Syringe) Confirm Administered Dose 25 mg IV .STK-MED ONE Stop: 12/07/19 21:06 Fentanyl (Sublimaze) Confirm Administered Dose 100 mcg .ROUTE .STK-MED ONE Stop: 12/07/19 20:26 Cefazolin Sodium/Dextrose 2 gm (/ Premix) 50 mls @ 100 mls/hr IV ONETIME ONE Stop: 12/07/19 19:29 Cefazolin Sodium/Dextrose 1 gm (/ Premix) 50 mls @ 100 mls/hr IV ONETIME ONE Stop: 12/07/19 19:29 Lactated Ringer's (Ringers, Lactated) 1,000 mls @ 125 mls/hr IV ASDIRECTED [facility] Last Admin: 12/07/19 19:55 Dose: 999 mls/hr Lactated Ringer's (Ringers, Lactated) Confirm Administered Dose 1,000 mls @ as directed .ROUTE .STK-MED ONE Stop: 12/07/19 20:48 Lactated Ringer's (Ringers, Lactated) Confirm Administered Dose 1,000 mls @ as directed .ROUTE .STK-MED ONE Stop: 12/07/19 21:25 Dextrose/Lactated Ringer's (Dextrose 5%-Lactated Ringers) 1,000 mls @ 125 mls/ hr IV ASDIRECTED [facility] Stop: 12/08/19 07:00 Last Admin: 12/07/19 23:00 Dose: 125 mls/hr Dextrose/Lactated Ringer's (Dextrose 5%-Lactated Ringers) Confirm Administered Dose 1,000 mls @ as directed .ROUTE .STK-MED ONE Stop: 12/07/19 23:05 Last Admin: 12/08/19 09:19 Dose: Not Given Lactated Ringer's (Ringers, Lactated) 500 mls @ 500 mls/hr IV .BOLUS ONE Stop: 12/08/19 09:54 Last Admin: 12/08/19 09:15 Dose: 500 mls/hr Ketorolac Tromethamine (Toradol) Confirm Administered Dose 30 mg .ROUTE .STK- MED ONE Stop: 12/07/19 21:34 Ketorolac Tromethamine (Toradol) 30 mg IVPUSH Q6H [place] Stop: 12/08/19 15:31 Last Admin: 12/08/19 17:30 Dose: 30 mg Metoclopramide HCl (Reglan) 10 mg IVPUSH ONETIME ONE Stop: 12/07/19 19:00 Last Admin: 12/07/19 20:18 Dose: 10 mg Miscellaneous Medication (Phenylephrine 1 Mg/10 Ml-Ns) Confirm Administered Dose 1 mg IV .STK-MED ONE Stop: 12/07/19 20:44 Morphine Sulfate (Duramorph Pf) Confirm Administered Dose 10 mg .ROUTE .STK-MED ONE Stop: 12/07/19 20:27 Ondansetron HCl (Zofran) 4 mg IVPUSH Q4H PRN PRN Reason: Nausea/Vomiting Oxytocin (Pitocin) Confirm Administered Dose 20 unit .ROUTE .STK-MED ONE Stop: 12/07/19 20:26 Sodium Chloride (Saline Flush) 10 ml FLUSH ASDIRECTED PRN PRN Reason: Keep Vein Open
== END 2019-12-09 10:40 | disposition home or self-care (01) | DRG 788 ==
LOC: JD.OBCHECK 18:05 → JD.OB 18:12 → JD.OBCHECK 19:35 → JD.OB 19:36 → OBSVTOIN 21:03
PROVIDERS: ADMIT Obstetrics & Gynecology; ATTEND Obstetrics & Gynecology
PROC: 10D00Z1 Extraction of Products of Conception, Low, Open Approach (ICD-10-PCS; principal; 2019-12-07)
DX: O34.211 Maternal care for low transverse scar from previous cesarean delivery (principal); O99.214 Obesity complicating childbirth; E66.9 Obesity, unspecified; Z37.0 Single live birth; Z3A.37 37 weeks gestation of pregnancy; Z87.891 Personal history of nicotine dependence
CPT/HCPCS: 01961; 36415; 59025; 85027; 86592; 86850; 86900; 86901; 94762; A9270-GY; J0171; J0690; J1885; J2270; J2370; J2590; J2765; J3010; J7120; J7121